=== PATIENT | male | born 1955 | race Caucasian/White ===

== ENCOUNTER 2016-10-27 08:47 | Inpatient (IN) | payer OTHER ==
[~2016-10-27] VITALS: Ht 182.9 cm; Wt 110.2 kg
[2016-10-27] VITALS (13 sets, daily range): BP systolic 103–143; BP diastolic 56–91
--- NOTE | ~2016-10-27 | HC ---
[facility] [place] [address] CONSULTATION Name: YAN HERNANDEZ Room #: 308-P ADM IN M.R.#: [id number] Admission: 10/27/16 Attend Phys: Андрей Rios MD Discharge: Date of : 59 Report #: [id number] THIS REPORT FOR: //name// CC: Андрей Rios DATE OF SERVICE: 10/27/2016 REFERRING PROVIDER: Андрей Rios MD REASON FOR CONSULT: Fevers and abdominal pain. 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 The patient traveled to [place], [place] where he underwent exploratory laparotomy, debulking of mucin deposits as well as intraperitoneal chemotherapy. During his procedure, he also underwent cholecystectomy and splenectomy. He was doing well in his postoperative course until last month when he had evidence of an incisional ventral hernia with questionable small-bowel obstruction and traveled back to [place] for reexploration. At that time, he underwent lysis of adhesions with no evidence of intra-abdominal metastasis or ongoing cancer and was repaired with a complex abdominal wall reconstruction using bilateral component separation, but no mesh was placed whatsoever in his abdominal wall, per his report. He did have a LEIGHTON drain placed at the time of surgery that has been indwelling since that time and Dr. Rios has been managing it as far as output is concerned and appropriate time for removal based upon directions given by the surgeon in [place]. The patient's output has been scant serous fluid until yesterday when the drain pulled out long-term and stopped draining and he has since had development of fevers up to nearly 104 degrees with chills and mild abdominal pain. He therefore was admitted from the office today and I have been asked to evaluate. Prior to me arriving at the bedside, he has now had laboratories and CT scan of the abdomen and pelvis obtained, which showed a marked leukocytosis with a white blood cell count of nearly 30,000 with 13% bands and his CT scan showed evidence of a 13 x 6 cm fluid collection, that is undrained and appears to be an abscess. I am asked to evaluate from a surgical standpoint. PAST MEDICAL HISTORY: Appendiceal cancer, status post appendectomy, cholecystectomy, splenectomy and intraperitoneal chemotherapy and he has also had a recent hernia repair and has hiatal hernia and hyperlipidemia. HOME MEDICATIONS: Zocor, multivitamin, glucosamine chondroitin, aspirin, vitamin C, and vitamin E. ALLERGIES: No known drug allergies. FAMILY HISTORY: Reviewed and noncontributory. [address] [address] CONSULTATION Name: YAN HERNANDEZ Room #: 308-P [facility] IN M.R.#: [id number] Admission: 10/27/16 Attend Phys: Андрей Rios MD Discharge: Date of : 59 Report #: [id number] SOCIAL HISTORY: The patient does not utilize tobacco or illicit drugs. 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 REVIEW OF SYSTEMS: GENERAL: The patient denies prior nocturnal fevers or chills, just his recent fever as of late. HEENT: No change in vision or change in hearing. NECK: No swelling or difficulty swallowing. HEART: No chest pain or palpitations. LUNGS: No cough or shortness of breath. ABDOMEN: No nausea and no vomiting. GENITOURINARY: No dysuria or hematuria. ENDOCRINE: No polyuria or polydipsia. HEMATOLOGIC: No history of bleeding or easy bruising. EXTREMITIES: No history weakness or limited range of motion. NEUROLOGIC: No history of syncope or near syncopal episodes. SKIN AND INTEGUMENT: No history of abnormal lesions or moles. PSYCHIATRIC: No history of anxiety or depression. PHYSICAL EXAMINATION: VITAL SIGNS: Temperature 98.0, pulse 63, respirations 18, blood pressure 120/84, he stands 6 feet 0 inches tall and weighs 243 pounds. GENERAL: Alert and oriented, in no acute distress. HEENT: Normocephalic, atraumatic. Pupils are equal, round, and reactive to light. NECK: Supple without lymphadenopathy. Trachea midline. HEART: Regular rate and rhythm. LUNGS: Clear to auscultation bilaterally. ABDOMEN: Overweight, but soft, no real distention, minimal tenderness in the midline and certainly no guarding, rebound or peritoneal signs or symptoms. The patient's indwelling LEIGHTON drain shows the fluted end that should be intra-abdominal, is approximately 6 inches outside of the body with a suture pulled through the skin. Midline incision shows no evidence of drainage. GENITOURINARY: Normal external male genitalia. EXTREMITIES: No clubbing, cyanosis, or edema. NEUROLOGIC: Cranial nerves 2-12 are grossly intact. PSYCHIATRIC: Normal mood and affect. SKIN AND INTEGUMENT: No abnormal lesions or moles, otherwise. LABORATORY AND X-RAY DATA: CBC shows white blood cell count 29.1 thousand, hemoglobin 13.9, platelets 367,000. Creatinine 1.2, albumin is 3.5. Chest x-ray shows no acute intrathoracic process. Urinalysis is negative. CT scan of the abdomen and pelvis was reviewed and shows a 13 x 6 cm fluid collection within the subcutaneous tissues, not being drained by the indwelling drain. [place] [id number] CONSULTATION Name: YAN HERNANDEZ Room #: 308-P [facility] IN ..#: [id number] Admission: 10/27/16 Attend Phys: Андрей Rios MD Discharge: Date of : 59 Report #: [id number] ASSESSMENT AND PLAN: A 61-year-old male who is 1 month status post complex abdominal wall reconstruction that he reports was done with component separation and no mesh implant who now has evidence of a subcutaneous abscess. I did spend greater than 60 minutes gathering his history, reviewing his operative reports from [place] with him and reviewing his workup thus far and as his LEIGHTON drain was outside of the body and obviously nonfunctional, I did remove this at the bedside today without issue. I have spoken with Dr. Hay of interventional radiology service and he will perform a percutaneous drainage under radiologic guidance today, so the patient will be kept n.p.o. until that procedure is done. Once the drain is in place, he can have a regular diet and continue with IV fluids and antibiotics per the direction of Dr. Mera with the infectious disease service. I sincerely appreciate this consult. I will follow closely and leave any further recommendations in the patient's chart as appropriate. <ELECTRONICALLY SIGNED> By: Darling Pollard MD, FACS 10/28/16 0746 [id number] Darling Pollard MD, FACS /nt
--- NOTE | ~2016-10-27 | HC ---
[facility] [place] [address] CONSULTATION Name: YAN HERNANDEZ Room #: 308-P ADM IN M.R.#: [id number] Admission: 10/27/16 Attend Phys: Андрей Rios MD Discharge: Date of : 59 Report #: [id number] THIS REPORT FOR: //name// CC: Андрей Rios REASON FOR CONSULTATION: I was asked to evaluate concerning postoperative fever. HISTORY OF PRESENT ILLNESS: The patient was a 61-year-old who presents with fever of 103 degrees following abdominal surgery on September 23 in [place], [place]. He had had a history of appendiceal cancer in 2009. Subsequently, he has had a local resection along with cholecystectomy and splenectomy along with intraoperative chemotherapy. He had a ventral hernia with possible obstruction that was evaluated last month. He underwent a midline abdominal laparotomy with adhesion release and abdominal release to close the hernia. He has had a drain in place since that time with significant output. Yesterday the drain pulled out half way and stopped draining. He then developed fever up to 103 with chills. REVIEW OF SYSTEMS: Notes no rash, cough, sputum, nausea, vomiting, diarrhea, dysuria or frequency. ALLERGIES: None. PAST MEDICAL HISTORY: Tonsillectomy, hiatal hernia, hyperlipidemia, umbilical herniorrhaphy, colonic polyp, diverticulosis, appendiceal cancer, cholecystectomy and splenectomy. FAMILY HISTORY: Noncontributory. 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 Nonsmoker. No significant alcohol intake. No HIV risk factors. PHYSICAL EXAMINATION: VITAL SIGNS: Afebrile and hemodynamically stable. GENERAL: He was alert and cooperative. HEENT: Unremarkable. SKIN: Unremarkable. LYMPH: Unremarkable. LUNGS: Clear. HEART: Regular. ABDOMEN: Soft. Minimal tenderness in the right lower quadrant with a drain in place. It was nearly pulled out. I am unclear how long the drain is. There has been no significant output identified. Midline incision was unremarkable. He had no CVA tenderness. EXTREMITIES: Unremarkable. NEUROLOGIC: Normal. [facility] [address] [place] [address] CONSULTATION Name: YAN HERNANDEZ Room #: 308-P [facility] IN M.R.#: [id number] Admission: 10/27/16 Attend Phys: Андрей Rios MD Discharge: Date of : 59 Report #: [id number] IMPRESSION AND PLAN: A 61-year-old status post abdominal relapse for repair of ventral hernia following small bowel adhesion release. Has postoperative fever I suspect related to his drain coming out and residual fluid buildup in the pelvis. No symptoms to suggest pneumonia, urinary tract infection or colitis. Would recommend CT scan of abdomen and pelvis with replacement of drain and sampling of the fluid for culture. Blood cultures. Urinalysis with urine culture, reflux, chest x-ray. Begin Zosyn and check CBC and chemistry. <ELECTRONICALLY SIGNED> By: Raul Mera MD 10/27/16 [id number] Raul Mera MD /david
[~2016-10-27 08:47] MED LIST: ASPIRIN EC81 M1 PO; GLUCOSAMINE-CH1 EA36 PO; MULTIPLE VITAM1 EAC3 PO; MULTIVITAMINS PO; SULINDAC 150 M150 MG PO; VITAMIN E400 UNIT PO; VITAMINC500 PO; ZOCOR 20 MG TAB20 M1 PO
[2016-10-27 11:32] LABS: HEMATOCRIT 42.3 % (42.0-52.0); HEMOGLOBIN 13.9 gm/dL (14.0-18.0); MANUAL DIFF YES; MCH 32.2 pg (26.0-34.0); MCHC 32.9 g/dL (28.0-37.0); MCV 97.8 fL (80.0-100.0); PLATELET COUNT 367 thou/uL (150-400); RBC 4.33 mil/uL (4.50-6.00); WBC 29.1 thou/uL (4.0-11.0)
[2016-10-27 12:00] LABS: ALBUMIN 3.5 g/dL (3.4-5.0); CALCIUM 9.3 mg/dL (8.5-10.1); CREATININE 1.2 mg/dL (0.7-1.3); POTASSIUM 3.8 mmol/L (3.5-5.1); TOTAL BILIRUBIN 1.4 mg/dL (<0.1-1.0); TOTAL PROTEIN 7.4 g/dL (6.4-8.2)
[2016-10-27 12:01] LABS: ABSOLUTE NEUTROPHILS 23.6 thou/uL (1.4-8.2); LARGE PLATELETS FEW; TOTAL CELL COUNT 100
[2016-10-27 13:52] LABS: URINE BILIRUBIN NEGATIVE (Negative); URINE BLOOD TRACE (Negative); URINE COLOR YELLOW; URINE GLUCOSE-RANDOM* NEGATIVE (Negative); URINE KETONES NEGATIVE (Negative); URINE LEUKOCYTES-REFLEX NEGATIVE (Negative); URINE PROTEIN (DIPSTICK) NEGATIVE (Negative); URINE SPECIFIC GRAVITY <= 1.005 (1.003-1.035); URINE UROBILINOGEN 0.2 E.U./dl (0.2-1.0)
[2016-10-28 04:16] VITALS: BP 120/70
[2016-10-28 07:23] VITALS: BP 116/72
[2016-10-28 08:26] LABS: HEMATOCRIT 39.2 % (42.0-52.0); MCH 31.8 pg (26.0-34.0); MCHC 33.2 g/dL (28.0-37.0); MCV 95.8 fL (80.0-100.0); RBC 4.09 mil/uL (4.50-6.00); RDW 14.1 % (10.5-14.5)
[2016-10-28 08:32] LABS: CALCIUM 8.9 mg/dL (8.5-10.1)
[2016-10-28 16:00] VITALS: BP 134/89
[2016-10-28 20:00] VITALS: BP 126/81
[2016-10-29 04:00] VITALS: BP 125/80
[2016-10-29 05:45] LABS: HEMATOCRIT 37.2 % (42.0-52.0); HEMOGLOBIN 12.5 gm/dL (14.0-18.0); MCH 32.3 pg (26.0-34.0); MCHC 33.7 g/dL (28.0-37.0); MCV 95.8 fL (80.0-100.0); RBC 3.88 mil/uL (4.50-6.00); WBC 9.7 thou/uL (4.0-11.0)
[2016-10-29 06:01] LABS: CALCIUM 8.8 mg/dL (8.5-10.1); CREATININE 0.9 mg/dL (0.7-1.3); POTASSIUM 4.1 mmol/L (3.5-5.1)
[2016-10-29 08:09] VITALS: BP 138/80
[2016-10-29] MEDS ORDERED: AUGMENTIN 875875 MG PO (15:15)
[2016-10-29 15:42] VITALS: BP 138/80
[2016-10-29 15:47] VITALS: BP 138/80
== END 2016-10-29 16:38 | disposition home or self-care (01) | DRG 872 ==
LOC: 3N 08:47
PROVIDERS: Family Medicine; Specialist; Surgery
PROC: 0J983ZZ Drainage of Abdomen Subcutaneous Tissue and Fascia, Percutaneous Approach (ICD-10-PCS; principal; 2016-10-27)
DX: A41.9 Sepsis, unspecified organism (principal); L02.211 Cutaneous abscess of abdominal wall; R50.82 Postprocedural fever; E78.5 Hyperlipidemia, unspecified; Z79.899 Other long term (current) drug therapy; Z90.49 Acquired absence of other specified parts of digestive tract; Z90.81 Acquired absence of spleen; Z85.89 Personal history of malignant neoplasm of other organs and systems; Z86.010 Personal history of colon polyps
CPT/HCPCS: 10096

== ENCOUNTER 2018-01-26 18:58 | Emergency (ER) | payer OTHER ==
[~2018-01-26] VITALS: Ht 182.9 cm; Wt 111.1 kg
--- NOTE | ~2018-01-26 | EKG ---
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 01/27/18 1711 1905 190 Jayesh Smith MD, FACC /EPI
[~2018-01-26 18:58] MED LIST changes: +AUGMENTIN 875875 MG PO
[2018-01-26] MEDS ORDERED: CRESTOR20 MG PO (19:04)
[2018-01-26 19:50] LABS: ABSOLUTE NEUTROPHILS 5.5 thou/uL (1.4-8.2); BASOPHILS 1.1 % (0.0-2.0); EOSINOPHILS 3.4 % (0.0-3.0); HEMATOCRIT 45.4 % (42.0-52.0); HEMOGLOBIN 15.5 gm/dL (14.0-18.0); LYMPHOCYTES 37.5 % (24.0-44.0); MCH 32.5 pg (26.0-34.0); MCHC 34.2 g/dL (28.0-37.0); MCV 95.1 fL (80.0-100.0); PLATELET COUNT 402 thou/uL (150-400); RBC 4.77 mil/uL (4.50-6.00); WBC 10.9 thou/uL (4.0-11.0)
[2018-01-26 19:56] LABS: CALCIUM 9.2 mg/dL (8.5-10.1); POTASSIUM 3.8 mmol/L (3.5-5.1)
[2018-01-26 20:00] LABS: ALBUMIN 3.7 g/dL (3.4-5.0); TOTAL BILIRUBIN 0.6 mg/dL (<0.1-1.0); TOTAL PROTEIN 7.6 g/dL (6.4-8.2); TROPONIN-I <0.06 ng/mL (<0.06)
[2018-01-26] MEDS ORDERED: NAPROSYN500 MG PO (20:58)
[2018-01-26] MEDS ORDERED: NORFLEX100 MG PO (20:58)
== END 2018-01-26 21:26 | disposition home or self-care (01) ==
LOC: ER 18:58
PROVIDERS: Emergency Medicine
DX: M43.6 Torticollis (principal); M79.601 Pain in right arm; R07.89 Other chest pain; E78.00 Pure hypercholesterolemia, unspecified; Z90.49 Acquired absence of other specified parts of digestive tract; Z90.89 Acquired absence of other organs

== ENCOUNTER → 2020-06-20 | Outpatient (CLI) | payer OTHER ==
[~2020-06-20] MED LIST changes: +CRESTOR20 MG PO; +NAPROSYN500 MG PO; +NORFLEX100 MG PO
== END ==
LOC: LAB 12:29
PROVIDERS: ATTEND Anesthesiology
DX: Z01.812 Encounter for preprocedural laboratory examination (principal); Z20.822 Contact with and (suspected) exposure to COVID-19

== ENCOUNTER → 2020-07-01 | Outpatient (CLI) | payer OTHER | LOC: CAT 07:48 | PROVIDERS: ATTEND Family Medicine | DX: Z13.6 Encounter for screening for cardiovascular disorders (principal); I25.10 Atherosclerotic heart disease of native coronary artery without angina pectoris ==